=== PATIENT | female | born 1975 | race African-American/Black ===

== ENCOUNTER 2016-08-13 10:58 | Outpatient (CLI) | payer MEDICAID ==
[~2016-08-13] VITALS: Ht 162.6 cm; Wt 126.8 kg
--- NOTE | ~2016-08-13 | OP ---
PATIENT NAME: JACOB HORVATH MEDICAL RECORD: [id number] :71 LOCATION:D.CAT ADMISSION DATE: SURGEON: MAISHA RUTH MD DATE OF OPERATION: 08/13/2016 PROCEDURE: Left heart catheterization, selective coronary angiography, right radial approach. CATHETERS: A 5-Slovenian sheath, 5/4 [place] catheter. The procedure was well tolerated. The patient returned to wood, sheath removed and a TR band was placed. FINDINGS: Left ventriculography in the 30-degree GOTTLIEB view, normal wall motion, normal systolic function. CORONARY ANATOMY. LEFT MAIN: Left main is free of disease. LAD: Free of disease in the diagonal system. CIRCUMFLEX: Free of disease in the marginal system. RIGHT CORONARY ARTERY: Dominant artery, gives rise to PDA, free of disease. IMPRESSION: Normal systolic function. Normal coronary anatomy. TRANSINT:[id number] Voice Confirmation ID: [id number] DOCUMENT ID: [id number] MAISHA RUTH MD CC: [id number] DICTATION DATE: 08/13/16 1339 BEHAVIOR SUPPORT SPECIALIST: 08/13/16 1709 DEP CLI 08/13/16 [facility] [address] [place] [address]
--- NOTE | ~2016-08-13 | HEMODYNAMI ---
PATIENT:JACOB HORVATH MEDICAL RECORD: [id number] : 71 LOCATION:D.CAT ADMISSION DATE: 08/13/16 Generatedon:08/13/201613:27 Patient name: JACOB HORVATH Patient #: [id number] SSN: : 1975 Date of study: 08/13/2016 Page: Of Hemodynamic Procedure Report Patient Data Patient Demographics Procedure consent was obtained First Name: JACOB Gender: Female Last Name: ALEXANDRU : 1975 Middle Initial: D Age: 40 year(s) Patient #: [id number] Race: Black Additional ID: [id number] Contact details [address]: [address] [place] [address] State: [place] City: [place] Zip code: [address] Past Medical History Allergies Allergen Reaction Date Comments Reported Other 08/13/2016 compazine,sulfa,clindamycin, allergy Morphine Admission Admission Data Admission Date: 08/13/2016 Admission Time: 10:58 Admit Source: Other Height (in.): 63 BSA: 2.23 (m2) Height (cm.): 160.02 BMI: 49.42 (kg/m2) Weight (lbs.): 279 Weight (kg.): 126.55 Lab Results Lab Result Date: 08/13/2016 Lab Result Time: 11:45 Biochemistry Name Units Result Min Max BUN mg/dl 12 --(-*--)-- 7 18 Creatinine mg/dl 1.1 --(--*-)-- 0.6 1.3 CBC Name Units Result Min Max Hematocrit % 40.8 -*(----)-- 42 54 Hemoglobin g/dl 13.7 --(*---)-- 13.5 17.5 Procedure Procedure Types Cath Procedure Diagnostic Procedure [facility] w/Coronaries Miscellaneous Procedures Moderate Sedation up to 30 minutes Procedure Description Procedure Date Procedure Date: 08/13/2016 Procedure Start Time: 13:12 Procedure End Time: 13:26 Procedure Staff Name Function Levi Longo MD Performing Physician Jane Gomez RT Scrub Dung Vazquez RN Nurse Jean Carlos Flores RT Monitor Procedure Data Cath Procedure Fluoroscopy Diagnostic fluoroscopy Total fluoroscopy Time: 4.9 time: 4.9 min min Diagnostic fluoroscopy Total fluoroscopy dose: 974 dose: 974 mGy mGy Contrast Material Contrast Material Type Amount (ml) Isovue 300 82 Entry Location Entry Primary Successful Side Size Upsize Upsize Entry Closure [place] ccessful Closure Location (Fr) 1 (Fr) 2 (Fr) Remarks Device Remarks Radial Right 6 Fr Mechanical artery Short Compression Estimated blood loss: 5 ml Diagnostic catheters Device Type Used For End Catheter Placement Diagnostic Terumo 5Fr Procedure [place] 110cm catheter Procedure Complications No complications Procedure Medications Medication Administration Route Dosage Oxygen NC 2 l/min Heparin Flush Bag added to field 2 bags (1000units/500ml NS) 0.9% NaCl I.V. 100 ml/hr Radial Cocktail added to field 1 syringe (Verapomil 2mg/Nitro 400mcg/Heparin 1500units) Fentanyl I.V. 50 mcg Versed I.V. 1 mg Fentanyl I.V. 50 mcg Versed I.V. 1 mg Fentanyl I.V. 50 mcg Radial Cocktail I.A. 1 syringe (Verapomil 2mg/Nitro 400mcg/Heparin 1500units) Fentanyl I.V. 50 mcg Hemodynamics Rest BSA: 2.23 (m2) HGB: 13.7 (g/dl) O2 Consumption: Estimated: 233.73 (ml/min) O2 Co nsumption indexed: Estimated:104.81 (ml/min/m) Heart Rate: 80 (bpm) Pressure Samples Time Site Value (mmHg) Purpose Heart Use Rate(bpm) 13:14 LV 129/-5,16 Snapshot 86 13:15 AO 106/77(89) Pullback 98 13:15 LV 120/5,19 Pullback 98 Gradients Valve Time Site 1 Site 2 Mean SEP/DFP Peak To Heart Use (mmHg) (sec/min) Peak Rate (mmHg) (bpm) Aortic 13:15 LV AO 12 10 14 98 120/5,19 106/77(89) Calculations Valve P-P Mean Valve Index Valve Source Name Gradient Area Flow (cm2) Aortic 14 12 14 12 Snapshots Pre Cath Intra NCS Post Cath Vital Signs Time Heart Resp SPO2 NIBP (mmHg) Rhythm Pain Sedation Rate (ipm) (%) Status Level (bpm) 12:36:43 78 20 100 126/79(95) NSR 0 (11) 10(A) , No pain 12:41:05 78 20 98 126/92(111) NSR 0 (11) 10(A) , No pain 12:45:29 73 20 100 130/84(97) NSR 0 (11) 10(A) , No pain 12:49:58 74 20 97 133/80(103) NSR 0 (11) 10(A) , No pain 12:54:26 76 18 99 117/80(101) NSR 0 (11) 10(A) , No pain 12:58:50 77 20 99 116/73(91) NSR 0 (11) 10(A) , No pain 13:03:14 75 17 98 131/72(90) NSR 0 (11) 10(A) , No pain 13:07:42 72 20 99 114/78(94) NSR 0 (11) 10(A) , No pain 13:12:02 81 20 98 123/85(100) NSR 0 (11) 10(A) , No pain 13:16:33 81 17 94 120/66(87) NSR 0 (11) 9(A) , No pain 13:20:59 79 19 93 113/70(93) NSR 0 (11) 9(A) , No pain 13:25:15 80 18 94 123/69(91) NSR 0 (11) 9(A) , No pain Medications Time Medication Route Dose Verified Delivered Reason Notes Effectiveness by by 12:37:52 Oxygen NC 2 l/min Dung Razo Per George Vazquez RN physician RN 12:38:09 Heparin Flush added 2 bags Dung Razo used for Bag to George Vazquez RN procedure (1000units/500ml field RN NS) 12:38:21 0.9% NaCl I.V. 100 Dung Razo Per ml/hr George Vazquez RN physician RN 12:38:30 Radial Cocktail added 1 Dung Razo used for (Verapomil to syringe George Vazquez geodesy teacher 2mg/Nitro field RN 400mcg/Heparin 1500units) 13:07:42 Fentanyl I.V. 50 mcg Dung Razo for sedation George Vazquez RN RN 13:07:49 Versed I.V. 1 mg Dung Razo for sedation George Vazquez RN RN 13:11:13 Fentanyl I.V. 50 mcg Dung Razo for sedation George Vazquez RN RN 13:11:17 Versed I.V. 1 mg Dung Razo for sedation George Vazquez RN RN 13:12:33 Fentanyl I.V. 50 mcg Dung Razo for sedation George Vazquez RN RN 13:13:18 Radial Cocktail I.A. 1 Dung Sims for (Verapomil syringe Vazquez Qing vasodilation 2mg/Nitro RN 400mcg/Heparin 1500units) 13:14:13 Fentanyl I.V. 50 mcg Dung Razo for sedation George Vazquez RN entry examiner Log Time Note 11:54:33 Diagnostic Cath Status : Elective 11:55:11 Time tracking: Regular hours 11:55:15 Plan of Care:Hemodynamics will remain stable., Cardiac rhythm will remain stable., Comfort level will be maintained., Respiratory function will remain adequate., Patient/ family verbilizes understanding of procedure., Procedure tolerated without complication., Recovers from procedure without complications.. 12:05:14 Jane Counts RT(R) sent for patient. Start room use. 12:22:44 Lab Result : Hematocrit 40.8 % 12:22:44 Lab Result : Hemoglobin 13.7 g/dl 12:22:50 Patient received from Pre/Post Procedure Room to CCL 2 Alert and oriented. Tansferred to table in Supine position. 12:22:51 Warm blankets applied, and leslye hugger turned on for patient comfort. 12:22:52 Correct patient and procedure confirmed by team. 12:22:53 Signed procedure consent form obtained from patient. 12:22:54 ECG and BP/O2 sat monitors applied to patient. 12:35:18 Vital chart was started 12:37:52 Oxygen 2 l/min NC was administered by Dung Vazquez RN; Per physician; 12:38:09 Heparin Flush Bag (1000units/500ml NS) 2 bags added to field was administered by Dung Vazquez RN; used for procedure; 12:38:12 Full Disclosure recording started 12:38:17 Rhythm: sinus rhythm 12:38:21 0.9% NaCl 100 ml/hr I.V. was administered by Dung Vazquez RN; Per physician; 12:38:21 Baseline sample Acquired. 12:38:30 Radial Cocktail (Verapomil 2mg/Nitro 400mcg/Heparin 1500units) 1 syringe added to field was administered by Dung Vazquez RN; used for procedure; 12:47:47 H&P Date Dictated: 08/01/2016 Within 30 days and on chart., H&P Addendum completed by physician on day of procedure. (MUST COMPLETE FOR ALL OUTPATIENTS). 12:47:52 Pre-procedure instructions explained to patient. 12:47:52 Pre-op teaching completed and patient verbalized understanding. 12:47:58 Family in patients room. 12:48:00 Patient NPO since Midnight. 12:48:29 Patient allergic to Other allergycompazine,sulfa,clindamycin, Morphine 12:48:31 Is the patient allergic to Iodine/contrast media? No. 12:48:32 Is patient on blood thinner?No 12:48:34 Patient diabetic? No. 12:48:36 Previous problem with sedation/anesthesia? No ? 12:48:37 Snore? Yes 12:48:38 Sleep apnea? Yes 12:48:39 Deviated septum? No 12:48:40 Opens mouth fully? Yes 12:48:40 Sticks out tongue? Yes 12:48:42 Airway obstruction? No ? 12:48:43 Dentures? No ? 12:48:46 Modified Jonah's test Ulnar < 7 seconds 12:48:48 Patient pain scale 0/10 ?. 12:48:52 IV patent on arrival in left hand with 0.9% NaCl at [facility]. 12:48:54 Lab results completed and on chart. 12:49:07 Lab Result : BUN 12 mg/dl 12:49:07 Lab Result : Creatinine 1.1 mg/dl 12:49:11 Right Radial & Right Groin area was prepped with chlora-prep and draped in sterile fashion 12:49:17 Alarms reviewed by R. N. 12:49:17 Sharps counted by scrub and verified by R.N. 12:49:20 Use device set Radial Dx 12:49:21 MBrace Wrist Support opened to sterile field. 12:49:22 Acist Manifold opened to sterile field. 12:49:23 Tegaderm 4 x 4 opened to sterile field. 12:49:24 Acist Hand Control opened to sterile field. 12:49:25 Acist Syringe opened to sterile field. 12:49:25 Medline Cath Pack opened to sterile field. 12:49:26 Bag Decanter opened to sterile field. 12:49:26 Terumo 6Fr Slender Glidesheath opened to sterile field. 12:49:26 St Christian 260cm J .035 wire opened to sterile field. 12:51:50 Patient Height : 160.02 cm 12:51:54 Patient Weight : 126.55 kg 12:51:54 Admit Source: Other 12:59:32 Zero performed for pressure channel P1 13:06:50 Physical assessment completed. ASA score P 2 - A patient with mild systemic disease as per Janejohn Gomez RT(R). 13:06:57 --------ALL STOP TIME OUT------ 13:06:59 Final Timeout: patient, procedure, and site verified with staff and physician. All members of the team are in agreement. 13:07:00 Right Radial & Right Groin site verified by team. 13:07:06 Sedation plan: IV Moderate Sedation Versed, Fentanyl 13:07:07 Physician arrived 13:07:42 Fentanyl 50 mcg I.V. was administered by Dung Vazquez RN; for sedation; 13:07:49 Versed 1 mg I.V. was administered by Dung Vazquez RN; for sedation; 13:11:13 Fentanyl 50 mcg I.V. was administered by Dung Vazquez RN; for sedation; 13:11:17 Versed 1 mg I.V. was administered by Dung Vazquez RN; for sedation; 13:12:01 Procedure started. 13:12:06 Local anesthetic to right radial artery with Lidocaine 2% by Levi Longo MD.INITIAL ACCESS ONLY 13:12:17 A 6 Fr Short sheath was inserted into the Right Radial artery 13:12:33 Fentanyl 50 mcg I.V. was administered by Dung Vazquez RN; for sedation; 13:12:51 A Diagnostic Terumo 5Fr [place] 110cm catheter was advanced over the wire and used for Procedure. 13:13:18 Radial Cocktail (Verapomil 2mg/Nitro 400mcg/Heparin 1500units) 1 syringe I.A. was administered by Levi Longo MD; for vasodilation; 13:14:09 LV hemodynamics recorded. 13:14:13 Fentanyl 50 mcg I.V. was administered by Dung Vazquez RN; for sedation; 13:14:14 LV gram done using GOTTLIEB 13:14:17 Injector settings: Ml/sec: 5, Volume: 15, 13:14:58 EF : 60 % 13:16:48 RCA angiography performed. 13:17:08 Catheter removed. unable to cannulate vessel. 13:17:26 Medtronic Launcher 6Fr EBU 3.5 guide catheter opened to sterile field. 13:17:36 6 Fr EBU 3.5 guide catheter was inserted over the wire 13:21:30 LCA angiography performed. 13:22:05 Catheter removed. 13:22:21 Terumo TR Band Large opened to sterile field. 13:22:52 Sheath removed intact; hemostasis achieved with Mechanical Compression to the Right Radial artery. 13:22:53 Procedure ended.(Physican Out) 13:24:24 Fluoroscopy time 04.90 minutes. 13:24:29 Fluoroscopy dose: 974 mGy 13:24:29 Flurop Dose total: 974 13:24:34 Contrast amount:Isovue 300 82ml. 13:24:36 Sharps counted by scrub and verified by R.N. 13:24:42 TR band inflated with 12cc of air. 13:24:43 Insertion/operative site no bleeding no hematoma. 13:24:54 Post right radial artery:stable, soft, clean and dry 13:24:55 Post Procedure Pulses reassessed and unchanged 13:24:58 Post procedure rhythm: unchanged. 13:25:03 Estimated blood loss: 5 ml 13:25:04 Post procedure instruction explained to patient.Patient verbalizes understanding. 13:25:04 Patient needs reinforcement of post procedure teaching. 13:25:29 Procedure type changed to Cath procedure, Diagnostic procedure, LHC, LHC w/Coronaries, Miscellaneous Procedures, Moderate Sedation up to 30 minutes 13:25:50 Procedure and supply charges have been captured, reviewed, submitted and are correct. 13:25:52 Procedure Complication : No complications 13:25:55 Vital chart was stopped 13:25:55 See physician's report for complete and final results. 13:25:56 Report given to Pre/Post Procedure Room. 13:25:58 Patient transfered to Pre/Post Procedure Room with Stretcher. 13:26:00 Procedure ended. 13:26:00 Full Disclosure recording stopped 13:26:05 End room use (Document Last) Device Usage Item Name Manufacture Quantity Catalog Hospital Part Current Minimal Lot# / Number Charge Number Stock Stock Serial# Code MBce Aleks 1 140-0250-00 325080 00937 [id number] 5 Wrist Vascular Support Dynamics Acist Acist 1 00797 734359 068870 068379 5 Manifold Medical Systems Inc Tegaderm 4 3M 1 1626W 087771 760729 035498 5 x 4 Acist Hand Acist 1 74267 370819 626500 325233 5 Control Medical Systems Inc Acist Acist 1 91768 578884 447393 540317 20 Syringe Medical Systems Inc Medline Cardinal 1 [id number] 220063 67920 598825 5 Cath Pack Health Bag Microtek 1 2002S 801792 80619 502338 5 Optimum [employer] Inc. Terumo 6Fr Terumo 1 [id number] 435710 557212 151654 [address] St Christian 1 193708 569411 263363 418049 30 260cm J .035 wire Diagnostic Terumo 1 48-4491 208170 656018 547654 5 Terumo 5Fr [place] 110cm catheter Medtronic Medtronic 1 [id number] 924011 74568 203881 3 Launcher 6Fr EBU 3.5 guide catheter Terumo TR Terumo 1 [id number] 543258 798900 083105 40 Band Large Signature Audit Allyn Stage Time Signature Unsigned Intra-Procedure 08/13/2016 Jean Carlos Flores 1:26:55 PM RT(R) Signatures Monitor : Jean Carlos Flores RT Signature : Date : Time : [place] [id number] [facility], [facility]901
[~2016-08-13 10:58] MED LIST: AMOXICILLIN875 MG PO; BACLOFEN20 M1 PO; BUSPIRONE HCL30 MG PO; DEXILANT60 MG PO; FETZIMA40 MG PO; KLONOPIN0.5 MG PO; LITHIUM CARBON300 MG PO; LOPRESSOR25 MG PO; MAXITROL EYE DRO5 ML RIGHT EYE; MINIPRESS1 MG PO; NEURONTIN600 MG PO; PERCOCET 5-3251 TAB PO; REMERON15 MG PO
[2016-08-13] MEDS ORDERED: NORVASC10 MG PO (11:28)
[2016-08-13] MEDS ORDERED: SONATA10 MG PO (11:28)
[2016-08-13] MEDS ORDERED: VESICARE10 MG PO (11:29)
[2016-08-13] MEDS ORDERED: VALIUM10 MG PO (11:29)
[2016-08-13] MEDS ORDERED: VIIBRYD40 MG PO (11:30)
[2016-08-13] MEDS ORDERED: ALDACTONE50 MG PO (11:31)
[2016-08-13 11:43] VITALS: BP 128/78; Ht 162.6 cm; Wt 126.8 kg
[2016-08-13 11:51] LABS: BASOPHILS 0.3 % (0-2); EOSINOPHILS 2.3 % (0-7); HEMATOCRIT 40.8 % (36.0-48.0); HEMOGLOBIN 13.7 g/dL (12-16); IMMATURE GRANULOCYTES 0.3 % (0-5); LYMPHOCYTES 36.4 % (15-50); MCH 29.8 pg (26.0-34.0); MCHC 33.6 g/dL (31.0-37.0); MCV 88.9 fL (80.0-100.0); MEAN PLATELET VOLUME 10.1 fL (7.4-10.4); MONOCYTES 8.8 % (2-11); NEUTROPHILS 51.9 % (40-80); RBC 4.59 10x6/uL (4.00-5.40); RDW 13.8 % (11.5-14.5)
[2016-08-13 12:04] LABS: PLATELET COUNT 315 10x3/uL (130-400)
[2016-08-13 12:40] LABS: CALCIUM 9.1 mg/dL (8.5-10.1); CARBON DIOXIDE 27.7 mmol/L (21.0-32.0); CREATININE - SERUM 1.1 mg/dL (0.6-1.3); POTASSIUM - SERUM 3.7 mmol/L (3.5-5.1)
[2016-08-13 13:02] LABS: HCG SERUM NEGATIVE (NEGATIVE)
--- NOTE | 2016-08-13 13:45 | NUR ---
1345 TR BAND TO R/WRIST CDI NO BLEEDING NO HEMATOMA NOTED. VSS WITH CHEST PAIN DENIED. INSTRUCTED PATIENT TO KEEP RUE STRAIGHT NO BENDING OR FLEXING OF WRIST
--- NOTE | 2016-08-13 14:15 | NUR ---
TR BAND TO RIGHT WRIST CDI, NO BLEEDING AT SITE, FAMILY AT SIDE
== END 2016-08-13 15:45 | disposition home or self-care (01) ==
LOC: D.CATH 10:58
PROVIDERS: Internal Medicine Interventional Cardiology
DX: I20.9 Angina pectoris, unspecified (principal); I10 Essential (primary) hypertension; F17.200 Nicotine dependence, unspecified, uncomplicated; Z01.810 Encounter for preprocedural cardiovascular examination; Z01.812 Encounter for preprocedural laboratory examination; R07.9 Chest pain, unspecified

== ENCOUNTER → 2017-08-27 10:10 | Outpatient (CLI) | payer OTHER ==
[2016-08-13 11:43] VITALS: BMI 48.0
[~2017-08-27 10:10] MED LIST changes: +ALDACTONE50 MG PO; +KLONOPIN1 MG PO; +NORVASC10 MG PO; +RISPERDAL0.25 MG PO; +SONATA10 MG PO; +STRATTERA40 MG PO; +VALIUM10 MG PO; +VESICARE10 MG PO; +VIIBRYD40 MG PO; +ZANAFLEX4 MG PO
== END | disposition home or self-care (01) ==
LOC: D.RAD 10:00
DX: Z02.71 Encounter for disability determination (principal)

== ENCOUNTER 2017-08-27 10:54 | Emergency (ER) | payer MEDICAID ==
[~2017-08-27] VITALS: Ht 162.6 cm; Wt 135.5 kg
[~2017-08-27 10:54] MED LIST changes: -KLONOPIN1 MG PO; -RISPERDAL0.25 MG PO; -STRATTERA40 MG PO; -ZANAFLEX4 MG PO
[2017-08-27 11:02] VITALS: Ht 162.6 cm; Wt 135.5 kg
[2017-08-27] MEDS ORDERED: RISPERDAL0.25 MG PO (11:11)
[2017-08-27] MEDS ORDERED: STRATTERA40 MG PO (11:11)
[2017-08-27] MEDS ORDERED: ZANAFLEX4 MG PO (11:12)
[2017-08-27] MEDS ORDERED: KLONOPIN1 MG PO (11:12)
[2017-08-27 12:51] VITALS: BP 112/67
== END 2017-08-27 12:51 | disposition home or self-care (01) ==
LOC: D.ER 10:54
DX: R10.9 Unspecified abdominal pain (principal); I10 Essential (primary) hypertension

== ENCOUNTER → 2018-11-10 14:00 | Outpatient (CLI) | payer MEDICAID ==
[2017-08-27 11:02] VITALS: BMI 51.2
[~2018-11-10 14:00] MED LIST changes: +KLONOPIN1 MG PO; +RISPERDAL0.25 MG PO; +STRATTERA40 MG PO; +ZANAFLEX4 MG PO
--- NOTE | 2018-11-12 14:22 | EC ---
PATIENT:JACOB HORVATH DATE OF SERVICE: 11/10/18 SEX: F MEDICAL RECORD: [id number] DATE OF : [birth year] LOCATION:[facility] AGE OF PATIENT: 43 ADMISSION DATE: 11/10/18 REFERRING PHYSICIAN: INTERPRETING PHYSICIAN: MAISHA RUTH MD ECHOCARDIOGRAM REPORT ECHO CHARGES 4 ECHO COMPLETE Date: 11/10/18 CLINICAL DIAGNOSIS: HTN ECHOCARDIOGRAPHIC MEASUREMENTS (adult normal given) AC root (d.<3.7cm) 4.2 cm LV Septum d (<1.2 cm> 1.1 cm Valve Excursion 1.5 cm LV Septum (systole) 1.5 cm Left Atria (s.<4.0cm> 4.2 cm LVPW d(<1.2cm) 1.5 cm RV (d.<2.3cm) 4.0 cm LVPW (sytole) 1.8 cm LV diastole(<5.6CM) 5.3 cm MV E-F(>70mm/sec) cm LV systole 3.5 cm LVOT Diameter 2.1 cm MV exc.(>10mm) 1.2 cm Est.ejection fraction (50-75%) % DOPPLER: LVIT cm/sec A 84.0 cm/sec E 62.0 cm/sec LA cm/sec RVSP 22 mmHg LVOT 109 cm/sec AOP1/2T m/s Asc. Ao 121 cm/sec RVOT 60 cm/sec RA cm/sec PA 113 cm/sec AV Gradient Peak 5.89 mmHg AV Mean 3.22 mmHg AV Area 4.0 cm MV Gradient Peak 3.90 mmHg MV Mean 1.53 mmHg MV Area cm COMMENTS: Java Xml Developer: 2 STAN VELEZ Paramedic: 3 Dr. Longo TAPE# PACS Pericardial Effusion N DATE OF SERVICE: Adequate 2D, Color Flow, Spectral Doppler, and M-Mode No LVH. LV internal dimensions normal. Wall motion is normal. EF is greater than 55%. Aortic valve is tricuspid. No evidence of stenosis by Doppler interrogation. Left atrium is normal at 4.1 cm. Mitral valve shows no prolapse. Trace MR. Right-sided chambers are grossly normal. Trace TR. TRANSINT:[id number] Voice Confirmation ID: [id number] DOCUMENT ID: [id number] ECHOCARDIOGRAM REPORT [id number] JACOB HORVATH MAISHA RUTH MD at 1422 CC: [id number] DICTATION DATE: 11/11/181424 LEAD FABRICATOR: 11/11/18 2336 DEP CLI 11/10/18 [place] [id number] [place] [address]
== END | disposition home or self-care (01) ==
LOC: D.HCCECHO 11-03 08:30 → D.HCCARDIO 11-03 08:30 → D.HCCECHO 14:00
PROVIDERS: ATTEND Internal Medicine Interventional Cardiology
DX: I10 Essential (primary) hypertension (principal)

== ENCOUNTER → 2018-12-11 08:59 | Outpatient (CLI) | payer MEDICAID ==
[2017-08-27 11:02] VITALS: BMI 51.2
--- NOTE | 2018-12-16 11:41 | ST ---
PATIENT:JACOB HORVATH MEDICAL RECORD: [id number] SEX: F LOCATION:[facility] ORDER #: ADMISSION DATE: 12/11/18 AGE OF PATIENT: 43 REFERRING PHYSICIAN: INTERPRETING PHYSICIAN: BRE CARBALLO MD DATE OF SERVICE: 12/11/2018 INDICATION: Angina, hypertension. She was exercised on standard Lexiscan protocol with 33 mCi of sestamibi injected at peak stress, 11 mCi used previously for rest images. FINDINGS: Gated SPECT reveals preserved ejection fraction at 65% with good wall motion and thickening and brightening throughout all segments. SPECT imaging Cardiolite was used as myocardial fusion agent. There is homogeneous uptake throughout all segments at rest and stress with no evidence of inducible ischemia or previous infarction. OVERALL IMPRESSION: 1. This is a normal nuclear stress test with no evidence of inducible ischemia or previous infarction. 2. Gated SPECT reveals a preserved ejection fraction at 65%. In this patient with ongoing symptomatology, the current scan does not suggest the presence of hemodynamically significant coronary artery disease. Evaluate noncardiac etiology of chest pain. TRANSINT:[id number] Voice Confirmation ID: [id number] DOCUMENT ID: [id number] BRE CARBALLO MD at 1141 CC: ELVIN SOLOMON MD [id number] DICTATION DATE: 12/12/18 1116 POKER MACHINE ATTENDANT: 12/12/18 2300 DEP CLI 12/11/18 [place] [address] [place] [address]
== END | disposition home or self-care (01) ==
LOC: D.HCCARDIO 08:59
PROVIDERS: ATTEND Internal Medicine Interventional Cardiology
DX: I20.9 Angina pectoris, unspecified (principal)

== ENCOUNTER → 2020-06-30 09:34 | Outpatient (CLI) | payer MEDICAID ==
[2017-08-27 11:02] VITALS: BMI 51.2
--- NOTE | ~2020-06-30 | ST ---
PATIENT:JACOB HORVATH MEDICAL RECORD: [id number] SEX: F LOCATION:[facility] ORDER #: ADMISSION DATE: 06/30/20 AGE OF PATIENT: 44 REFERRING PHYSICIAN: INTERPRETING PHYSICIAN: MAISHA RUTH MD DATE OF SERVICE: 06/30/2020 NUCLEAR STRESS TEST Gated: Normal. Normal wall motion, normal EF 60%. SPECT imaging: SPECT imaging was performed. FINDINGS: Short axis view: Shows good uptake along the anterior wall, lateral wall, and inferior wall. Horizontal axis: Horizontal axis confirms good uptake along the anterior wall and inferior wall. Vertical axis: Vertical axis shows good uptake along the lateral wall and septum. FINAL IMPRESSION: 1. Normal gated, normal wall motion, normal EF 60%. 2. Normal SPECT imaging. TRANSINT:[id number] Voice Confirmation ID: [id number] DOCUMENT ID: [id number] MAISHA RUTH MD CC: [id number] DICTATION DATE: 07/01/20 1208 THOROUGHBRED HORSE FARM MANAGER: 07/02/20 0245 DEP CLI 06/30/20 [place] [address] [place] [address]
--- NOTE | ~2020-06-30 | EC ---
PATIENT:JACOB HORVATH DATE OF SERVICE: 06/30/20 SEX: F MEDICAL RECORD: [id number] DATE OF : [birth year] LOCATION:[facility] AGE OF PATIENT: 44 ADMISSION DATE: 06/30/20 REFERRING PHYSICIAN: INTERPRETING PHYSICIAN: MAISHA RUTH MD ECHOCARDIOGRAM REPORT ECHO CHARGES 4 ECHO COMPLETE Date: 06/30/20 CLINICAL DIAGNOSIS: ANGINA/HEART MURMUR ECHOCARDIOGRAPHIC MEASUREMENTS (adult normal given) AC root (d.<3.7cm) 3.1 cm LV Septum d (<1.2 cm> 1.3 cm Valve Excursion 1.6 cm LV Septum (systole) 1.5 cm Left Atria (s.<4.0cm> 4.0 cm LVPW d(<1.2cm) 1.3 cm RV (d.<2.3cm) 3.7 cm LVPW (sytole) 1.6 cm LV diastole(<5.6CM) 4.7 cm MV E-F(>70mm/sec) cm LV systole 2.6 cm LVOT Diameter 1.9 cm MV exc.(>10mm) 1.3 cm Est.ejection fraction (50-75%) % DOPPLER: LVIT cm/sec A 70.0 cm/sec E 59.0 cm/sec LA cm/sec RVSP 17 mmHg LVOT 74 cm/sec AOP1/2T m/s Asc. Ao 110 cm/sec RVOT cm/sec RA cm/sec PA cm/sec AV Gradient Peak 4.82 mmHg AV Mean 2.82 mmHg AV Area 1.7 cm MV Gradient Peak 2.71 mmHg MV Mean 1.71 mmHg MV Area cm COMMENTS: Negative Cutter: 2 STAN VELEZ Manufacturing Development Engineer: 3 Dr. Longo TAPE# PACS Pericardial Effusion N DATE OF SERVICE: Adequate 2D, color-flow imaging, spectral Doppler, and M-Mode. FINDINGS: Mild LVH. LV internal dimension is normal. Wall motion is normal. EF is greater than or equal to 55%. Aortic valve is tricuspid. No evidence of stenosis by Doppler interrogation. Left atrium is normal at 4.0 cm. Mitral valve shows no prolapse. Trace MR. Right side is grossly normal. Trace TR. TRANSINT:[id number] Voice Confirmation ID: [id number] DOCUMENT ID: [id number] ECHOCARDIOGRAM REPORT [id number] JACOB HORVATH GREGORY A MD CC: [id number] DICTATION DATE: 07/01/20 1320 WOOD FILLER: 07/01/20 2324 DEP CLI 06/30/20 [place] [address] [place] [address]
== END | disposition home or self-care (01) ==
LOC: D.HCCECHO 09:34
PROVIDERS: ATTEND Internal Medicine Interventional Cardiology
DX: I20.9 Angina pectoris, unspecified (principal)